=== PATIENT | female | born 1995 | race Caucasian/White ===

== ENCOUNTER 2020-04-19 09:33 | Emergency (ER) | payer BC ==
[2020-04-19] MEDS ORDERED: Ketorolac Tromethamine 30 MG/ML VIAL ONE (10:20)
[2020-04-19 11:22] LABS: #Lymphocytes 0.8 thou/uL (1.20-3.40); #Monocytes 0.3 thou/uL (0.11-0.59); #Neutrophils 5.5 thou/uL (1.40-6.50); %Basophils 0.7 % (0.0-1.0); %Eosinophils 0.2 % (0.0-10.0); %Lymphocytes 12.2 % (21.0-51.0); %Monocytes 4.6 % (0.0-10.0); %Neutrophils 82.4 % (42.0-75.0); Hemoglobin 13.6 g/dL (12.0-16.0); Mean Corpuscular HGB CONC 33.3 g/dL (32.0-36.0); Mean Corpuscular Hemoglobin 31.2 pg (27.0-31.0); Mean Corpuscular Volume 93.9 fL (78.0-98.0); Platelet Count 157 thou/uL (130-400); RBC Distribution Width 11.3 % (11.5-14.5); Red Blood Cell (RBC) Count 4.36 mill/uL (4.20-5.40); White Blood Cell (WBC) Count 6.7 thou/uL (4.8-10.8)
[2020-04-19 11:44] LABS: ALT (SGPT) 11 U/L (8-55); AST (SGOT) 20 U/L (5-34); Albumin 4.4 g/dL (3.5-5.0); Alkaline Phosphatase 40 U/L (40-110); Anion Gap 14 mmol/L (10-20); BUN (Urea Nitrogen) 15 mg/dL (7.0-18.7); Bilirubin, Total 1.1 mg/dL (0.2-1.2); Calc. Creatinine Clearance 0 mL/min (70-130); Calcium 8.9 mg/dL (7.8-10.44); Carbon Dioxide 21 mmol/L (22-29); Chloride 107 mmol/L (98-107); Globulin 2.6 g/dL (2.4-3.5); Glucose 82 mg/dL (70-105); Potassium 4.2 mmol/L (3.5-5.1); Sodium 138 mmol/L (136-145)
[2020-04-19 11:51] LABS: Bilirubin Negative (Negative); Blood, Urine 1+ (Negative); Clarity Clear (Clear); Glucose, Urine (Dipstick) Normal (Negative); Ketone, Urine 20 mg/dL (Negative); Leukocyte 25 Leu/uL (Negative); Nitrite Negative (Negative); Protein, Urine (Dipstick) 10 mg/dL (Neg-Trace); Specific Gravity, Urine 1.021 (1.002-1.036); Squamous Epithelial 0-3 HPF (0-3); Urobilinogen Normal mg/dL (Less than 2); pH, Urine 5.5 (5.0-9.0)
[2020-04-19 11:52] LABS: Bacteria/HPF 1+ HPF (None Seen)
[2020-04-19 12:11] LABS: BHCG - Serum Negative (NEGATIVE); Pregs Control Background? CLEAR/WHITE (CLR/WHITE); Pregs Control Bar Appear? YES (CONTROL BAR)
--- NOTE | 2020-04-19 12:45 | CT ---
CT Stone Protocol 04/19/2020 12:24 PM HISTORY: Right flank pain. Vomiting. History of kidney stones. COMPARISON: None. Technique: Multiple contiguous axial CT images are obtained through the abdomen and pelvis without IV contrast. Coronal reformats are provided. FINDINGS: This examination is limited for the evaluation of solid organs and vascular structures due to the lac k of intravenous contrast. Lower Chest: Lung bases are clear. Liver: Grossly normal non-enhanced CT appearance. Gallbladder: Mild increased density layering within the gallbladder lumen which could be related to g allbladder sludge. Gallbladder calculi would be difficult to entirely exclude. Pancreas: Grossly normal nonenhanced CT appearance. Spleen: Grossly normal nonenhanced CT appearance. Adrenals: Grossly normal nonenhanced CT appearance. Kidneys and ureters: There multiple punctate nonobstructing right renal calculi seen. No left renal c alculus is visualized. There is no right hydronephrosis, but there is mild dilatation of the right ureter with tapering of the ureter in the lower pelvis. Multiple unopacified structures are seen in t he pelvis which limits adequate evaluation. There were a few calcifications in the right hemipelvis one of which represents a phlebolith, but there is a calcification seen in the expected location of t he distal right ureter and right UVJ measuring 4 mm which may represent a distal right ureteral calculus. No calcification was seen in this region on prior abdominal radiograph in 2019. Retrograde study may be helpful for further evaluation. No left renal or ureteral calculus is seen. Urinary bladder: Incompletely distended but otherwise normal in appearance. Reproductive Organs: No pelvic masses. Lymph Nodes: No enlarged lymph nodes. Bowel: Normal caliber. Appendix: The appendix is normal in caliber. Peritoneum: No free fluid, free air, or fluid collection. Retroperitoneum: within normal limits. Vessels: Abdominal aorta is normal in caliber.. Abdominal Wall: within normal limits. Bones: No lytic or sclerotic osseous lesions. IMPRESSION: 1. Mild dilatation right ureter without overt right hydronephrosis. There is tapering of the distal r ight ureter. Calcification is seen in the right hemipelvis near the region of tapering of the ureter, and while this could represent a phlebolith, this calcification was not present on prior abdo tressa radiograph in 2019 and may represent a distal right ureteral calculus measuring 4 mm. 2. Multiple tiny punctate obstructing right renal calculi. 3. No left renal or ureteral calculus is seen. 4. Increased density within the gallbladder lumen which may represent gallbladder sludge. Gallbladder calculi would be difficult to entirely exclude. The gallbladder is not distended.
== END 2020-04-19 13:55 | disposition home or self-care (01) ==
LOC: ERS 09:33
DX: N20.0 Calculus of kidney (principal)
CPT/HCPCS: 36415; 74176; 80053; 81003; 81015; 84703; 85025; 87086; 96374; J1885